=== PATIENT | female | born 1935 | race American Indian/Alaskan Native ===

== ENCOUNTER 2016-12-24 09:13 | Emergency (ER) | payer MEDICARE ==
[2016-12-24 09:20] VITALS: BMI 27.1
[2016-12-24 09:53] LABS: BASO % 0.8 % (0.0-2.0); EOS # 0.1 K/uL (0.0-0.7); EOS % 1.5 % (0.0-4.0); HEMATOCRIT 37.9 % (34.0-47.0); LYMPH # 1.2 K/uL (1.0-4.3); MEAN CORPUSCULAR HEMOGLOBIN 29.8 pg (27.0-31.0); MEAN CORPUSCULAR HGB CONC 31.5 g/dL (33.0-37.0); MEAN PLATELET VOLUME 9.5 fL (7.2-11.7); MONO # 1.1 K/uL (0.0-0.8); MONO % 19.1 % (0.0-10.0); NRBC % 0.4 % (0.0-2.0); RED CELL DISTRIBUTION WIDTH 18.8 % (11.5-14.5); WHITE BLOOD COUNT 5.8 K/uL (4.8-10.8)
--- NOTE | 2016-12-24 09:57 | C.PDOC ---
History Of Present Illness Patient is an 81 y/o F with L av fistula placed [address] Jones for worsening renal failure, likely needing future dialysis, presenting with bleeding from AV fistula Time Seen by Provider: 12/24/16 09:34 Chief Complaint (Nursing): Upper Extremity Problem/Injury Past Medical History Vital Signs: Last Vital Signs Temp 97.8 F 12/24/16 10:12 Pulse 69 12/24/16 10:12 Resp 16 12/24/16 10:12 BP 95/63 L 12/24/16 10:12 Pulse Ox 100 12/24/16 11:02 - Medical History PMH: CAD, CHF, Diabetes, HTN, Hypercholesterolemia Family History: States: No Known Family Hx - Social History Hx Tobacco Use: No Hx Alcohol Use: No Hx Substance Use: No - Immunization History Hx Tetanus Toxoid Vaccination: Yes Hx Influenza Vaccination: Yes Hx Pneumococcal Vaccination: No Review Of Systems Constitutional: Negative for: Fever, Chills Cardiovascular: Negative for: Chest Pain, Palpitations, Light Headedness Respiratory: Negative for: Cough, SOB with Excertion, Wheezing Gastrointestinal: Negative for: Nausea, Vomiting, Abdominal Pain, Diarrhea, Constipation Skin: Positive for: Other (bleeding from L AV fistula) Neurological: Negative for: Weakness, Numbness Physical Exam - Physical Exam Appears: Well, Non-toxic, No Acute Distress Head: Atraumatic, Normacephalic Eye(s): bilateral: Normal Inspection, PERRL, EOMI Cardiovascular: Rhythm Regular Respiratory: Normal Breath Sounds Gastrointestinal/Abdominal: Normal Exam, No Mass, No Distention Back: Normal Inspection Extremity: Normal ROM, Other (L AV fistula with sutures and aayush in place. + thrill. no active bleeding) ED Course And Treatment - Laboratory Results Result Diagrams: 12/24/16 09:49 12/24/16 09:49 O2 Sat by Pulse Oximetry: 100 Medical Decision Making Medical Decision Making: Fistula is not currently bleeding. Coagulation studies and hgb WNL. Chemistry shows known worsening renal failure. Dr. Jones evaluated at bedside and cleared patient for discharge. Disposition - Disposition Disposition: HOME/ ROUTINE Disposition Time: 10:10 Condition: GOOD Additional Instructions: Follow up with your PMD. Follow-up with Dr. Jones as previously arranged. Return to ED if condition worsens Forms: [employer] ([place]) - Clinical Impression Clinical Impression: Hemorrhage of arteriovenous fistula
[2016-12-24 10:00] LABS: MEAN CELL VOLUME 94.6 fL (81.0-99.0)
[2016-12-24 10:03] LABS: INR 1.2
[2016-12-24 10:10] LABS: POTASSIUM 4.4 mmol/L (3.6-5.2)
[2016-12-24 10:12] LABS: ALB/GLOB RATIO 0.9 (1.0-2.1); BILIRUBIN,TOTAL 1.3 mg/dL (0.2-1.3); TOTAL PROTEIN 7.3 g/dL (6.3-8.3)
[2016-12-24 10:13] VITALS: BP 95/63; PULSE 69; RESP 16; TEMP 97.8
[2016-12-24 10:13] LABS: CALCIUM 9.1 mg/dl (8.6-10.4)
[2016-12-24 11:02] VITALS: O2SAT 100
--- NOTE | 2017-01-12 18:45 | CON ---
DATE: 12/24/2016 The patient is a woman on dialysis. She has a pacemaker on the left side and has a Perm-A-Cath on the right side. She had a fistula created on her left arm which has been impossible to use. She has increasing pain in the area and because of this, she has come to the hospital to be evaluated. The patient recently had surgery and has a small hematoma in the wound. This does not require surgical evacuation. At this time, we will monitor the patient closely. Her pulse status is intact and while she has had some bleeding through to the skin, there does not appear to be any gaping or problems with the wound. Elton Jones Jr., MD
== END 2016-12-24 10:18 | disposition home or self-care (01) ==
LOC: C.ER 09:13
DX: T82.838A Hemorrhage due to vascular prosthetic devices, implants and grafts, initial encounter (principal); Y83.8 Other surgical procedures as the cause of abnormal reaction of the patient, or of later complication, without mention of misadventure at the time of the procedure

== ENCOUNTER 2018-10-13 05:57 | Day surgery (SDC) | payer MEDICARE ==
[2018-10-13 06:52] VITALS: BMI 25.5
[2018-10-13] MEDS ORDERED: Ropivacaine 0.5% PF (20 ml) inj INJ ONE ×2 (08:14→10:01)
[2018-10-13] MEDS ORDERED: Lidocaine Hydrochloride 10 ML INJ ONE (08:19)
[2018-10-13] MEDS ORDERED: Vancomycin 1 gm/D5W 200 ml 0 GM/0 ML BAG IVPB ONE (08:20)
[2018-10-13] MEDS ORDERED: HEPARIN-NS 5,000 UNITS/500 ML 5,000 UNIT/500 ML BAG IV ONE ×2 (08:20→11:45)
[2018-10-13 08:27] LABS: CALCIUM 9.9 mg/dl (8.6-10.4)
[2018-10-13] MEDS ORDERED: Clindamycin 600mg/50ml NS 600 MG/50 ML BAG IVPB ONE (09:58)
[2018-10-13] MEDS ORDERED: Bupivacaine HCl 0.5% PF (10 ml) Inj ONE (09:59)
[2018-10-13] MEDS ORDERED: HYDROmorphone 0.5 mg/0.5 ml ISec IVP PRN (13:03)
--- NOTE | 2018-10-13 13:09 | PCM.SURG1 ---
Surgeon's Initial Post Op Note - Surgeon's Notes Surgeon: Dr. Jones Obstetrics Nurse: Rossana PGY2 Type of Anesthesia: General Endo Anesthesia Administered By: Dr. Marc Pre-Operative Diagnosis: End Stage Renal Disease Operative Findings: See operative report Post-Operative Diagnosis: Same Operation Performed: Right Forearm Basillic Vein Transposition AVF creation Specimen/Specimens Removed: none Estimated Blood Loss: EBL {In ML}: 25 Blood Products Given: N/A Drains Used: No Drains Post-Op Condition: Good Date of Surgery/Procedure: 10/13/18 Time of Surgery/Procedure: 13:09
[2018-10-13 15:27] VITALS: BP 145/85; PULSE 95; RESP 20; TEMP 99; O2SAT 95
--- NOTE | 2018-10-13 22:03 | OP ---
PROCEDURE DATE: 10/13/2018 PREOPERATIVE DIAGNOSIS: Failing fistula, left arm. POSTOPERATIVE DIAGNOSIS: Failing fistula, left arm. PROCEDURE CARRIED OUT: Forearm basilic vein transposition fistula, right arm. SURGEON: Elton Jones Jr., MD CHILD PSYCHIATRIST: Aston Tracy DO ANESTHESIOLOGIST: Dr. Marc, axillary block. DESCRIPTION OF PROCEDURE: The patient is an older woman with a variety of medical problems including a failing fistula in the left arm with arm edema. Preoperatively, she does not have many good veins. However, a venogram was done, which showed that she had fairly good basilic vein all the way up the arm. Because of the proximity of the vessel, I attempted a forearm basilic vein transposition fistula finally. The more distal portion of the vein towards the hand, the vein was pretty small measuring approximately 2 mm in diameter. However, towards the elbow and below this, it was larger and closer to 3. We dissected the entire vein out from the wrist to the elbow, brought it through the subcutaneous tunnel, and anastomosed it just above the wrist to the adjacent brachial artery using loop magnification and heparin anticoagulation. At the end of the procedure, there was good pulse distal to the fistula. There was good flow through the fistula. Blood loss for the procedure was 50 mL. The patient tolerated the procedure uneventfully. So, the operation carried out was a forearm basilic vein transposition fistula. My major concern, however, is that the vein is relatively small. I am not sure if it will mature, but if it does, this will be quite helpful to her in the long run. Elton Jones Jr., MD
== END 2018-10-13 15:57 | disposition home or self-care (01) ==
LOC: C.SDS 05:57
PROVIDERS: ATTEND Surgery Vascular Surgery
DX: Z49.01 Encounter for fitting and adjustment of extracorporeal dialysis catheter (principal); N18.6 End stage renal disease; I77.0 Arteriovenous fistula, acquired
CPT/HCPCS: 36415; 36820; 80048; J1644; J3010